=== PATIENT | male | born 1965 | race Caucasian/White ===

== ENCOUNTER → 2017-02-22 | Outpatient (CLI) | payer OTHER, MEDICARE ==
[~2017-02-22] MED LIST: ASPIRIN 32325 MG/TAB PO; CARAFATE 1GM1 G PO; CARAFATE S1 GM/10 ML PO; LEVOXYL0.075 MG PO; NORCO 325 MG-51 TAB PO; NORCO 325 MG-7.1 TAB PO; PREVACID 15MG15 M1 PO; PRINIVIL10 MG PO; UNABLE
== END ==
LOC: COL.LAB 07:58
DX: E03.9 Hypothyroidism, unspecified (principal)

== ENCOUNTER → 2017-04-05 | Outpatient (CLI) | payer OTHER, MEDICARE ==
[2017-04-05 10:43] LABS: BASO % 0.6 % (0.0-2.0); EOS # 0.1 (0.0-0.7); EOS % 1.8 % (0-4.0); GRAN # 4.3 (1.4-6.5); GRAN % 63.3 % (42.2-75.2); HEMATOCRIT 43.8 % (42.0-52.0); HEMOGLOBIN 15.2 g/dl (13.5-18.0); LYMPH # 1.7 (1.2-3.4); LYMPH % 24.7 % (20.0-51.0); MEAN CELL VOLUME 85 fl (80.0-100.0); MEAN CORPUSCULAR HEMOGLOBIN 30 pg (27.0-31.0); MEAN CORPUSCULAR HGB CONC 35 g/dl (33.0-37.0); MEAN PLATELET VOLUME 10.1 fl (7.4-10.4); MONO # 0.6 (0.1-0.6); MONO % 9.2 % (1.7-9.3); PLATELET COUNT 267 K/mm3 (130-400); RED BLOOD COUNT 5.14 M/mm3 (4.20-5.60); REDCELL DISTRIBUTION WIDTH-CV 12.4 % (11.5-14.5); WHITE BLOOD COUNT 6.7 K/mm3 (4.8-10.8)
[2017-04-05 10:56] LABS: ADJUSTED CALCIUM 9.1 mg/dL (8.4-10.2); ALBUMIN 4.2 gm/dL (3.5-5.0); BILIRUBIN,TOTAL 0.8 mg/dL (0.0-1.0); CALCIUM 9.3 mg/dL (8.4-10.2); CREATININE, serum 0.94 mg/dL (0.66-1.25); POTASSIUM 4.3 mmol/L (3.4-5.0)
[2017-04-05 11:26] LABS: PSA-TOTAL 0.64 ng/mL (0-4)
== END ==
LOC: COL.LAB 09:08
PROVIDERS: Internal Medicine
DX: Z00.00 Encounter for general adult medical examination without abnormal findings (principal); E03.4 Atrophy of thyroid (acquired); Z12.5 Encounter for screening for malignant neoplasm of prostate; Z11.59 Encounter for screening for other viral diseases
CPT/HCPCS: G0103

== ENCOUNTER → 2017-12-06 | Outpatient (CLI) | payer OTHER, MEDICARE ==
[2017-12-06 07:24] LABS: ALBUMIN 4.4 gm/dL (3.5-5.0); BILIRUBIN,TOTAL 0.7 mg/dL (0.0-1.0); CALCIUM 8.9 mg/dL (8.4-10.2); CREATININE, serum 0.87 mg/dL (0.66-1.25); POTASSIUM 4.3 mmol/L (3.4-5.0); TOTAL PROTEIN 7.2 gm/dL (6.4-8.2)
== END ==
LOC: COL.LAB 06:44
PROVIDERS: Psychiatry & Neurology Psychiatry
DX: F20.9 Schizophrenia, unspecified (principal); F31.2 Bipolar disorder, current episode manic severe with psychotic features; Z79.899 Other long term (current) drug therapy

== ENCOUNTER → 2018-04-11 | Outpatient (CLI) | payer OTHER, MEDICARE ==
[2018-04-11 08:01] LABS: HEMATOCRIT 42.6 % (42.0-52.0); HEMOGLOBIN 14.7 g/dl (13.5-18.0); MEAN CELL VOLUME 86 fl (80.0-100.0); MEAN CORPUSCULAR HEMOGLOBIN 30 pg (27.0-31.0); MEAN CORPUSCULAR HGB CONC 35 g/dl (33.0-37.0); PLATELET COUNT 267 K/mm3 (130-400); RED BLOOD COUNT 4.94 M/mm3 (4.20-5.60); REDCELL DISTRIBUTION WIDTH-CV 12.4 % (11.5-14.5)
[2018-04-11 08:10] LABS: ALBUMIN 4.3 gm/dL (3.5-5.0); BILIRUBIN,TOTAL 0.9 mg/dL (0.0-1.0); CALCIUM 9.2 mg/dL (8.4-10.2); CHOLESTEROL RISK RATIO 3.3; CREATININE, serum 0.92 mg/dL (0.66-1.25); POTASSIUM 4.2 mmol/L (3.4-5.0); TOTAL PROTEIN 7.2 gm/dL (6.4-8.2)
[2018-04-11 08:39] LABS: THYROID STIMULATING HORMONE 2.86 uIU/mL (0.465-4.680)
[2018-04-11 09:26] LABS: PSA-TOTAL 0.63 ng/mL (0-4)
== END ==
LOC: COL.LAB 07:33
PROVIDERS: Internal Medicine
DX: Z00.00 Encounter for general adult medical examination without abnormal findings (principal); E03.9 Hypothyroidism, unspecified
CPT/HCPCS: G0103

== ENCOUNTER 2018-04-26 12:09 | Day surgery (SDC) | payer OTHER, MEDICARE ==
[2006-05-22 23:03] VITALS: BP 113/76
[~2018-04-26] VITALS: Ht 177.8 cm; Wt 78.7 kg
[2018-04-26 12:41] VITALS: BP 129/95; PULSE 84; TEMP 98.1
[2018-04-26] MEDS ORDERED: SYNTHROID0.088 MG/T PO (12:54)
[2018-04-26] MEDS ORDERED: CELEXA 20MG20 MG/TAB PO (12:58)
[2018-04-26] MEDS ORDERED: PREVACID24HROTC PO (12:59)
[2018-04-26] MEDS ORDERED: LIPITOR 10MG10 MG PO (13:00)
[2018-04-26] MEDS ORDERED: KLONOPIN 1MG1 MG PO (13:01)
[2018-04-26] MEDS ORDERED: COGENTIN .0.5 MG/TAB PO (13:01)
[2018-04-26] MEDS ORDERED: RISPERDALC37.5 MG/2 IJ (13:03)
[2018-04-26 13:55] VITALS: BP 132/96; PULSE 73; TEMP 98.7
[2018-04-26 14:00] VITALS: BP 133/97; PULSE 73
[2018-04-26 14:15] VITALS: BP 128/101; PULSE 73
[2018-04-26 14:30] VITALS: BP 119/85; PULSE 73
== END 2018-04-26 14:52 | disposition home or self-care (01) ==
LOC: SDCO 12:09
DX: Z12.11 Encounter for screening for malignant neoplasm of colon (principal); D12.5 Benign neoplasm of sigmoid colon; K64.0 First degree hemorrhoids; K21.9 Gastro-esophageal reflux disease without esophagitis; I10 Essential (primary) hypertension; E78.00 Pure hypercholesterolemia, unspecified; Z88.0 Allergy status to penicillin; Z88.2 Allergy status to sulfonamides
CPT/HCPCS: J2250; J3010; J7030

== ENCOUNTER → 2018-12-08 | Outpatient (CLI) | payer OTHER, MEDICARE ==
[~2018-12-08] MED LIST changes: +CELEXA 20MG20 MG/TAB PO; +COGENTIN .0.5 MG/TAB PO; +KLONOPIN 1MG1 MG PO; +LIPITOR 10MG10 MG PO; +PREVACID24HROTC PO; +RISPERDALC37.5 MG/2 IJ; +SYNTHROID0.088 MG/T PO
[2018-12-08 11:14] LABS: ALBUMIN 4.4 gm/dL (3.5-5.0); BILIRUBIN,TOTAL 0.9 mg/dL (0.0-1.0); CALCIUM 9.4 mg/dL (8.4-10.2); CREATININE, serum 0.86 mg/dL (0.66-1.25); TOTAL PROTEIN 7.5 gm/dL (6.4-8.2)
== END ==
LOC: COL.LAB 09:52
PROVIDERS: Psychiatry & Neurology Psychiatry
DX: F31.2 Bipolar disorder, current episode manic severe with psychotic features (principal); Z79.899 Other long term (current) drug therapy

== ENCOUNTER → 2019-01-13 | Outpatient (CLI) | payer OTHER, MEDICARE ==
[~2019-01-13] MED LIST changes: +BENADRYL25 M2 PO
[2019-01-13 10:35] LABS: BASO % 0.5 % (0.0-2.0); EOS # 0.1 (0.0-0.7); EOS % 0.9 % (0-4.0); GRAN % 68.4 % (42.2-75.2); HEMATOCRIT 41.8 % (42.0-52.0); LYMPH # 1.3 (1.2-3.4); LYMPH % 15.2 % (20.0-51.0); MEAN CELL VOLUME 89 fl (80.0-100.0); MEAN CORPUSCULAR HEMOGLOBIN 30 pg (27.0-31.0); MEAN CORPUSCULAR HGB CONC 34 g/dl (33.0-37.0); MEAN PLATELET VOLUME 9.8 fl (7.4-10.4); MONO # 1.3 (0.1-0.6); MONO % 14.9 % (1.7-9.3); PLATELET COUNT 282 K/mm3 (130-400); RED BLOOD COUNT 4.68 M/mm3 (4.20-5.60); REDCELL DISTRIBUTION WIDTH-CV 12.9 % (11.5-14.5)
[2019-01-13 10:45] LABS: ALBUMIN 4.1 gm/dL (3.5-5.0); BILIRUBIN,TOTAL 0.8 mg/dL (0.0-1.0); CALCIUM 9.4 mg/dL (8.4-10.2); CREATININE, serum 0.85 (0.66-1.25); POTASSIUM 4.3 mmol/L (3.4-5.0); TOTAL PROTEIN 7.3 gm/dL (6.4-8.2)
== END ==
LOC: COL.LAB 10:06
PROVIDERS: Internal Medicine
DX: K11.7 Disturbances of salivary secretion (principal); M79.641 Pain in right hand; M79.642 Pain in left hand; R26.81 Unsteadiness on feet; R13.12 Dysphagia, oropharyngeal phase; R29.898 Other symptoms and signs involving the musculoskeletal system; R25.1 Tremor, unspecified; R45.89 Other symptoms and signs involving emotional state

== ENCOUNTER 2019-01-16 15:09 | Inpatient (IN) | payer OTHER, MEDICARE ==
[~2019-01-16] VITALS: Ht 172.7 cm; Wt 76.8 kg
[~2019-01-16 15:09] MED LIST changes: -BENADRYL25 M2 PO
[2019-01-16 15:42] LABS: BASO % 0.4 % (0.0-2.0); EOS # 0.1 (0.0-0.7); EOS % 0.8 % (0-4.0); GRAN # 6.7 (1.4-6.5); GRAN % 79.3 % (42.2-75.2); HEMATOCRIT 44.3 % (42.0-52.0); HEMOGLOBIN 14.9 g/dl (13.5-18.0); LYMPH % 11.9 % (20.0-51.0); MEAN CELL VOLUME 88 fl (80.0-100.0); MEAN CORPUSCULAR HEMOGLOBIN 30 pg (27.0-31.0); MEAN CORPUSCULAR HGB CONC 34 g/dl (33.0-37.0); MONO # 0.6 (0.1-0.6); MONO % 7.2 % (1.7-9.3); PLATELET COUNT 336 K/mm3 (130-400); RED BLOOD COUNT 5.03 M/mm3 (4.20-5.60); REDCELL DISTRIBUTION WIDTH-CV 12.5 % (11.5-14.5)
[2019-01-16 16:13] LABS: COLLECTION METHOD CLEAN CATCH
[2019-01-16 16:20] LABS: PH 8 (5-8); SQUAMOUS EPITHELIAL None Seen /hpf; URINE APPEARANCE Clear; URINE BACTERIA None Seen /hpf; URINE BILIRUBIN Negative (NEGATIVE); URINE BLOOD 3+ (NEGATIVE); URINE COLOR Yellow; URINE GLUCOSE Negative (NEGATIVE); URINE KETONE Trace (NEGATIVE); URINE LEUKOCYTE ESTERASE Negative (NEGATIVE); URINE NITRATE Negative (NEGATIVE); URINE PROTEIN(semi-quant) Negative (NEGATIVE); URINE RBC >50 /hpf
[2019-01-16 16:21] LABS: PROTHROMBIN TIME 11.9 SECONDS (9.7-12.8)
[2019-01-16 16:35] LABS: ALANINE AMINOTRANSFERASE 83 U/L (21-72); ALBUMIN 4.2 gm/dL (3.5-5.0); ALKALINE PHOSPHATASE 76 U/L (50-136); ANION GAP 11 mmol/L (7-16); AST,SGOT 138 U/L (15-37); BILIRUBIN,TOTAL 0.5 mg/dL (0.0-1.0); BLOOD UREA NITROGEN 10 mg/dL (9-20); CALCIUM 9.6 mg/dL (8.4-10.2); CARBON DIOXIDE 28 mmol/L (22-30); CHLORIDE 100 mmol/L (98-107); CREATININE, serum 0.86 (0.66-1.25); GLUCOSE 117 mg/dL (74-106); LIPASE 55 U/L (23-300); POTASSIUM 4.3 mmol/L (3.4-5.0); SODIUM 139 mmol/L (137-145); TOTAL PROTEIN 7.5 gm/dL (6.4-8.2)
[2019-01-16 16:46] LABS: TROPONIN-I < 0.012 ng/mL (0.000-0.035)
[2019-01-16] MEDS ORDERED: BENADRYL25 M2 PO (21:42)
--- NOTE | 2019-01-16 23:33 | NUR ---
Report receive from JOSE Jaimes
[2019-01-17] VITALS (8 sets, daily range): BP systolic 130–156; BP diastolic 82–98; PULSE 73–95; TEMP 97.5–99
--- NOTE | 2019-01-17 00:15 | NUR ---
Patient arrived to medical floor with . Assessment complete. Lungs clear. Heart sounds normal. Bowels active x4. Pulses strong throughout. No edema noted. Coccyx area red/blanchable. Patient able to answer simple questions, difficult to understand speech. Orientated patient and to medical floor and room. Denies needs at this time. Call light in reach. Bed alarm in place.
--- NOTE | 2019-01-17 01:21 | NUR ---
Patient up to bedside commode x2 assist. Transferred well, able to move to side of bed with minimal assistance. Shuffing gait, with more difficulty with right foot.
--- NOTE | 2019-01-17 04:22 | NUR ---
Resting in bed with at bedside.
--- NOTE | 2019-01-17 05:29 | NUR ---
Bladder scanned patient. 505ml present. Per SABRINA Lujan start perez. Inserted perez. 400 ml of clear yellow urine out. Patient tolerated well.
--- NOTE | 2019-01-17 06:23 | NUR ---
Patient resting in bed with at bedside. Milton done. Seizure pads in place. IV fluids increased to 200 ml/hr as ordered. denies needs at this time. Call light in reach.
--- NOTE | 2019-01-17 07:00 | NUR ---
Report given to JOSE Vincent.
[2019-01-17 07:24] LABS: BASO % 0.3 % (0.0-2.0); EOS # 0.1 (0.0-0.7); EOS % 2.3 % (0-4.0); GRAN # 4.3 (1.4-6.5); HEMATOCRIT 37.8 % (42.0-52.0); LYMPH # 1.2 (1.2-3.4); LYMPH % 19.2 % (20.0-51.0); MEAN CELL VOLUME 89 fl (80.0-100.0); MEAN CORPUSCULAR HEMOGLOBIN 29 pg (27.0-31.0); MEAN CORPUSCULAR HGB CONC 33 g/dl (33.0-37.0); MEAN PLATELET VOLUME 10.1 fl (7.4-10.4); MONO # 0.6 (0.1-0.6); MONO % 8.9 % (1.7-9.3); PLATELET COUNT 286 K/mm3 (130-400); RED BLOOD COUNT 4.26 M/mm3 (4.20-5.60); REDCELL DISTRIBUTION WIDTH-CV 12.5 % (11.5-14.5)
[2019-01-17 07:26] LABS: HEMOGLOBIN 12.5 g/dl (13.5-18.0)
[2019-01-17 07:44] LABS: ALBUMIN 3.2 gm/dL (3.5-5.0); BILIRUBIN,TOTAL 0.4 mg/dL (0.0-1.0); CALCIUM 8.7 mg/dL (8.4-10.2); CREATININE, serum 0.75 (0.66-1.25); POTASSIUM 4.1 mmol/L (3.4-5.0); TOTAL PROTEIN 5.8 gm/dL (6.4-8.2)
[2019-01-17 07:45] LABS: MAGNESIUM 1.9 mg/dL (1.6-2.3)
--- NOTE | 2019-01-17 09:19 | NUR ---
Pt alert and oriented. Pt has spouse at bedside. Pt able to answer short questions. Pt able to smile and react appropriately to conversation this am. Pt seen by speech therapy this am. Pt able to take meds with applesauce slowly. Pt assisted x2 up to bed side commode. Pt provided cares and assessment completed. Pt denies pain or SOB. Pt has aide at side until done on commode for fall precautions in place. Seizure precautions remain as well.
--- NOTE | 2019-01-17 10:27 | NUR ---
BERNARDA and BERNARDA student attended clinical rounds. PT/OT/ST and an IPR consult has been ordered. The patient lives in [place] with his , Fely. Fely reports that the patient had been independent with ADLs until last Wednesday, 01/10, and then started declining. She states that he does not have any DME, just a gait belt. She states that the patient's PCP recommended a walker with a seat for him. The patient's PCP is Dr. Mira Ramey and he receives his medications from [facility] in [place] or the [facility]. He also follows up at [facility]. He does not have advanced directives, but he was interested in obtaining a form for DPOA-HC. BERNARDA provided. SW to continue to follow to ensure a safe discharge.
--- NOTE | 2019-01-17 10:46 | NUR ---
Initial visit; Patient resting, Bar Host/Hostess spent time listening and offering empathy to spouse.
--- NOTE | 2019-01-17 12:05 | NUR ---
Pt alert and oriented to person, place, time. Pt denies pain at this time and SOB. Pt going downstairs via wheelchair for MRI and then swallow study. Pt aware and spouse at bedside. EEG planned for around 1400 today. Pt denies needs at this time.
--- NOTE | 2019-01-17 14:04 | NUR ---
Pt returned from MRI and barrium swallow and telemetry put back on pt. Pt IV fluids restarted per orders. Pt states that he is hungry. Pt advised will have to speak with ST and MD regarding diet order. Pt and spouse verbalize understanding. Pt has call light in reach and EEG scheduled for 1400.
--- NOTE | 2019-01-17 16:55 | NUR ---
Pt alert and oriented but continues to mumble words to communicate. Pt spouse at bedside. Pt reports some tingling pain in his feet and asked for sheet to be taken off his feet. Pt has tremors noted in bilateral hands and arms. Dr. Black updated and no new orders continue to monitor. Pt has call light in reach and education given on diet and swallowing. Pt denies needs at this time.
--- NOTE | 2019-01-17 18:57 | NUR ---
Pt report given to Shelley Sherman. Pt resting in bed with spouse feeding him little bites of pureed food. Spouse edu to let nurse know when eating and to take it very slow to prevent any chance of aspiration. Spouse verbalizes understanding. Pt has call light in reach.
--- NOTE | 2019-01-17 19:02 | NUR ---
Report received from JOSE Vincent
--- NOTE | 2019-01-17 21:00 | NUR ---
Resting in bed with at bedside. Assessment complete. Lungs clear. Heart sounds normal. Bowels active x4. Pulses strong throughout. Erythema to buttocks, blanchable. Repositioning Q2H. Right AC IV infusing at 150ml/hr without complications. Denies any pain. Milton draining without complications. Denies needs at this time. Call light in reach.
[2019-01-18] VITALS (7 sets, daily range): BP systolic 111–147; BP diastolic 48–95; PULSE 72–92; TEMP 97.2–99.2
--- NOTE | 2019-01-18 00:18 | NUR ---
Patient repositioned. denies needs at this time. Call light in reach.
--- NOTE | 2019-01-18 01:30 | NUR ---
report recieved from JOSE Rosa. pt sleeping in bed with at bedside. no needs at this time. call light in reach.
--- NOTE | 2019-01-18 01:44 | NUR ---
Report given to Whit Montenegro
--- NOTE | 2019-01-18 04:14 | NUR ---
pt resting in bed with at bedside. when asking about pain pt said "no". moistened lips. VSS. IV fluids running via R AC- no redness no swelling. turning Q2. call light in reach. bed alarm on
--- NOTE | 2019-01-18 04:18 | NUR ---
pt perez draining independently, no kinks. secured to leg. pt sleeping. bed alarm on.
[2019-01-18 06:43] LABS: CREATININE, serum 0.66 (0.66-1.25); POTASSIUM 4.1 mmol/L (3.4-5.0)
--- NOTE | 2019-01-18 06:45 | NUR ---
report given to JOSE Carrera. pt resting in bed. had an uneventful night. no pain. no needs at this time
[2019-01-18 06:50] LABS: BASO % 0.2 % (0.0-2.0); EOS # 0.1 (0.0-0.7); EOS % 1.7 % (0-4.0); GRAN # 4.3 (1.4-6.5); GRAN % 70.5 % (42.2-75.2); HEMATOCRIT 38.5 % (42.0-52.0); HEMOGLOBIN 12.9 g/dl (13.5-18.0); LYMPH # 1.1 (1.2-3.4); LYMPH % 18.2 % (20.0-51.0); MEAN CELL VOLUME 89 fl (80.0-100.0); MEAN CORPUSCULAR HEMOGLOBIN 30 pg (27.0-31.0); MEAN CORPUSCULAR HGB CONC 34 g/dl (33.0-37.0); MONO # 0.6 (0.1-0.6); MONO % 9.1 % (1.7-9.3); PLATELET COUNT 295 K/mm3 (130-400); RED BLOOD COUNT 4.31 M/mm3 (4.20-5.60); REDCELL DISTRIBUTION WIDTH-CV 12.4 % (11.5-14.5)
--- NOTE | 2019-01-18 06:50 | NUR ---
Recieved report from, Amaya GARCIA. Patient was laying in bed. is in the room. The patient and denies any needs at this time. Will continue to monitor.
--- NOTE | 2019-01-18 11:28 | NUR ---
Follow-up visit; Patient and thanked Marble Worker for looking in on him and offering comfort and prayer. Marble Worker wished him well.
--- NOTE | 2019-01-18 12:44 | NUR ---
Pt was assissted to the shower. assissted the patient while in the shower. Pts reported that the patient tolerated the shower well. Pt was assissted back to bed and is resting. Call light in reach. Will continue to monitor.
--- NOTE | 2019-01-18 14:30 | NUR ---
NG placed per student RNMirella and this nurse. 16F to the right nare in place and xray taken to confirm placement. The patient tolerated the procedure well. Will start Jevity 1.5 at 30ml/hr when xray confirmed.
--- NOTE | 2019-01-18 15:00 | NUR ---
Radiology called to confirm NG placement. NG confirmed in place per radiologist. Feeding initiated at 30ml/hr with bolus water at 30ml. [id number]. Plan to increase rate to 50ml/hr if tolerated.
--- NOTE | 2019-01-18 21:15 | NUR ---
pt resting in bed relaxed with at bedside. pt reports no pain, just stiffness. turned pt at this time. turning 2Q. pt alert and oriented x4. NG tube secured to nose with Jevity running at 30ml/hr. perez is draining freely, no kinks, secured to leg. elevated heels at this time. pt recieved medication crushed in applesauce, swallowed well when pressing gently on lips with rag. pt and report no needs at this time. call light inreach
--- NOTE | 2019-01-18 21:32 | NUR ---
NG TUBE SECURED TO NOSE RATE 30 ML/HR.
--- NOTE | 2019-01-18 23:30 | NUR ---
NG is secured to nose. increased feeding rate to 50ML/HR for 7 hours. no needs at this time. calll light in reach.
[2019-01-19] VITALS (7 sets, daily range): BP systolic 122–139; BP diastolic 80–87; PULSE 77–81; TEMP 97.7–98.8
--- NOTE | 2019-01-19 00:43 | NUR ---
london Q2. pt reports no pain. asleep at ths time with at bed side. call light in reach
--- NOTE | 2019-01-19 05:51 | NUR ---
pt had an uneventful night. no pain reported. pt remained at 45 degrees throughout night. NG tube secured to nose with Jevity running at 50 ml/hr. perez draining freely, no kinks, secured to leg. VSS. turning Q2. heels floated. no needs at this time call light in reach.
--- NOTE | 2019-01-19 06:24 | NUR ---
pt NG tube is clamped at 57cm. residual <65cc throughout night. pt swalling improved throughout night. no pain, no needs a this time.
[2019-01-19 06:51] LABS: BASO % 0.4 % (0.0-2.0); EOS # 0.2 (0.0-0.7); GRAN # 5.3 (1.4-6.5); GRAN % 70.7 % (42.2-75.2); HEMATOCRIT 39.9 % (42.0-52.0); HEMOGLOBIN 13.7 g/dl (13.5-18.0); LYMPH # 1.2 (1.2-3.4); LYMPH % 15.5 % (20.0-51.0); MEAN CELL VOLUME 88 fl (80.0-100.0); MEAN CORPUSCULAR HEMOGLOBIN 30 pg (27.0-31.0); MEAN CORPUSCULAR HGB CONC 34 g/dl (33.0-37.0); MEAN PLATELET VOLUME 9.9 fl (7.4-10.4); MONO # 0.8 (0.1-0.6); MONO % 11.1 % (1.7-9.3); PLATELET COUNT 327 K/mm3 (130-400); RED BLOOD COUNT 4.53 M/mm3 (4.20-5.60); REDCELL DISTRIBUTION WIDTH-CV 12.7 % (11.5-14.5)
--- NOTE | 2019-01-19 07:09 | NUR ---
report given to JOSE Carrera. pt has no needs at this time
--- NOTE | 2019-01-19 08:30 | NUR ---
Initial assessment completed per Elgin, student RN. This nurse reviewed her assessment and agree with the findings. No pain. The patient was observed eating and has improved swallowing ability since yesterday. Plan to continue feeding tube and reassess amount patient is able to in on hiw own PO.
--- NOTE | 2019-01-19 08:45 | NUR ---
Reported on to Debi GARCIA. Patient A&O x3. Sitting up in bed due to NG tube feeding. 16F NG tube running at 50ml/hr, 10ml residual, 53 cm from nose to tip, and flushed with 30ml water. Rated changed to goal of 65ml/hr. Hand solutions operator weak but equal. Milton catheter in place. Patient states no pain at this time, no nausea, and passing flatus. HOB kept at 45 degrees. at bedside. Call light in reach, bed in lowest position, bed alarm on. Patient stated no other needs.
--- NOTE | 2019-01-19 12:17 | NUR ---
First visit from the etiquette teacher. prayed with patient. No other needs right now.
--- NOTE | 2019-01-19 13:20 | NUR ---
Milton catheter removed. 9ml of water removed from balloon with balloon intact. 700ml of urine flushed. Pericare provided after removal. Patient tolerated well.
--- NOTE | 2019-01-19 13:45 | NUR ---
Primary nurse was assisted with [phone] patient care by [employer] student Elgin Orozco and [employer] instructor Isabel Villeda RN-.
--- NOTE | 2019-01-19 18:09 | NUR ---
Patient sitting up in bed, HOB greater than 35 degrees. Alert and slowly responds to verbal command. VS stable. IV CDI. Tube feed to NG tube, rate decreased to 30ml/hr. Patient complaints of feeling full, doctor aware and rate decreased. Patient had complaints of hard stools, doctor aware and miralax ordered. at the bedside to help with cares. No further needs expressed from patient. Call light within reach
--- NOTE | 2019-01-20 04:13 | NUR ---
PT HAD UNEVENTFUL NOC. NG TUBE FEEDING GOING WITHOUT ISSUES, RUNNING AT 30CC, PT TOLLERATING WELL, ONLY 10CC RESIDUAL NOTED AND FREE WATER FLUSED WITHOUT ISSUE. TOLERATED PUREE DIET WELL. NS INFUSING WITHOUT ISSUE TKO. PT A&O X4, ABLE TO MAKE NEEDS KNOWN, SOFT SPOKEN. AT BEDSIDE AND HELPS WITH PT CARES.
[2019-01-20 04:23] VITALS: BP 119/85; PULSE 85; TEMP 98.2
[2019-01-20 06:59] LABS: BASO # 0.1 (0.0-0.2); BASO % 0.6 % (0.0-2.0); EOS # 0.2 (0.0-0.7); EOS % 2.2 % (0-4.0); GRAN # 5.6 (1.4-6.5); GRAN % 68.9 % (42.2-75.2); HEMATOCRIT 40.9 % (42.0-52.0); HEMOGLOBIN 13.4 g/dl (13.5-18.0); LYMPH # 1.3 (1.2-3.4); LYMPH % 15.6 % (20.0-51.0); MEAN CELL VOLUME 90 fl (80.0-100.0); MEAN CORPUSCULAR HEMOGLOBIN 30 pg (27.0-31.0); MEAN CORPUSCULAR HGB CONC 33 g/dl (33.0-37.0); MONO % 12.3 % (1.7-9.3); PLATELET COUNT 337 K/mm3 (130-400); RED BLOOD COUNT 4.54 M/mm3 (4.20-5.60); REDCELL DISTRIBUTION WIDTH-CV 12.8 % (11.5-14.5)
[2019-01-20 07:11] LABS: ALBUMIN 3.7 gm/dL (3.5-5.0); BILIRUBIN,TOTAL 0.3 mg/dL (0.0-1.0); CALCIUM 9.7 mg/dL (8.4-10.2); CREATININE, serum 0.82 (0.66-1.25); POTASSIUM 4.4 mmol/L (3.4-5.0); TOTAL PROTEIN 6.5 gm/dL (6.4-8.2)
--- NOTE | 2019-01-20 07:40 | NUR ---
Received report from off going shift. Patient was in the restroom, is at bedside. giving report regarding patients night and suggestions regarding his care. He is not having any pain at this time. requesting foam mattress cover be applied to bed, this was completed with bed change. No other needs identified. Call light is within reach.
--- NOTE | 2019-01-20 08:34 | NUR ---
Patient is awake and alert in bed, voice is soft. NG tube is secured in place. Lungs sounds are clear. Heart rate is regular rate and rhythm. Abdomen is soft and nontender. Peripheral and radial pulses are readily palpable. Appetite is reported to be improving. stated overall she feels like things are on the up. She has been staying with him and feels comfortable enough to go to work today.
[2019-01-20 08:38] VITALS: BP 125/81; PULSE 90; TEMP 98.1
--- NOTE | 2019-01-20 09:15 | NUR ---
Reported on to Skyla GARCIA. Patient sitting in chair eating breakfast with assit from . A&O x3, but voice still very hoarse and low. NG residual 8ml and flushed with 20ml water. NG tube 53cm from nose to tip and rate of Jevity feeding 30ml/hr. Patient stated no pain or nausea and passing flatus. Medications crushed and placed in applesauce and patient tolerated well. Call light in reach and bed in lowest position.
--- NOTE | 2019-01-20 10:18 | NUR ---
BERNARDA and BERNARDA student met with the patient and his , Fely, to review discharge plan. The patient's reports that they would like to pursue with [facility] upon discharge. BERNARDA presented and explained the patient choice form to the patient and his . The patient's signed and she was provided a copy. Danika, IPR Director, reports that they would like to accept the patient, once he is medically stable and she has approval from his insurance. The patient also completed a DPOA-HC and he designated his , Fely. BERNARDA and BERNARDA student witnessed the patient sign. The patient was provided with the original and some copies. A copy was placed in the patient's chart.
--- NOTE | 2019-01-20 11:15 | NUR ---
Report received from JOSE Crum. Pt resting in bed after walking with PT. Will continue to monitor.
[2019-01-20 12:07] VITALS: BP 118/74; PULSE 80; TEMP 97.5
--- NOTE | 2019-01-20 13:18 | NUR ---
Report given to Whit Dang who will resume care.
--- NOTE | 2019-01-20 13:47 | NUR ---
Primary nurse was assisted with [phone] patient care by [employer] student Elgin Orozco and [employer] instructor Isabel Villeda RN-.
--- NOTE | 2019-01-20 15:37 | NUR ---
Patient is resting in bed. NS @60 ml/hr, RAC. IV site is CDI, no redness, drainage or edema. Continuous tube feeding at 30 ml/hr. Patient HOB at 40 degree. lung sounds are clear throughout out. heart sounds normal. Pulses strong bilaterally. 1+ edema BUE. No edema noted BLE. No other needs at this time.
[2019-01-20 16:04] VITALS: BP 121/75; PULSE 95; TEMP 97.8
[2019-01-20 20:56] VITALS: BP 128/85; PULSE 85; TEMP 97.6
--- NOTE | 2019-01-20 22:26 | NUR ---
Patient assessed around 2039. at bedside. Assisted with eatting pureed foods for supper. Patient was sitting up in recliner while eatting. NG tube remains in place, with feeding going at 30 ml/hr. Peripheral IV to right AC, NS running at 60 ml/hr. Hand steam pipe fitter weak, but equal. Patient very soft spoken, and hard to understand at times. remains at bedside. Voices no needs or concerns at this time. Resting in bed at this time. Call light is within reach.
[2019-01-21] VITALS (7 sets, daily range): BP systolic 112–136; BP diastolic 68–94; PULSE 59–99; TEMP 97.3–99.6
--- NOTE | 2019-01-21 02:42 | NUR ---
Patient respositioned every two hours in bed. Denies having pain and discomfort. NS continues at 60 ml/hr, and NG feeding continues at 30 ml/hr. Tolerating well. Resting in bed with eyes closed at this time. Call light is wihtin reach. at bedside.
[2019-01-21 06:46] LABS: BASO % 0.3 % (0.0-2.0); EOS # 0.3 (0.0-0.7); EOS % 2.8 % (0-4.0); GRAN # 6.5 (1.4-6.5); GRAN % 71.4 % (42.2-75.2); HEMOGLOBIN 13.2 g/dl (13.5-18.0); LYMPH # 1.2 (1.2-3.4); LYMPH % 13.6 % (20.0-51.0); MEAN CELL VOLUME 92 fl (80.0-100.0); MEAN CORPUSCULAR HEMOGLOBIN 30 pg (27.0-31.0); MEAN CORPUSCULAR HGB CONC 32 g/dl (33.0-37.0); MEAN PLATELET VOLUME 10.2 fl (7.4-10.4); MONO # 1.1 (0.1-0.6); MONO % 11.6 % (1.7-9.3); PLATELET COUNT 322 K/mm3 (130-400); RED BLOOD COUNT 4.47 M/mm3 (4.20-5.60); REDCELL DISTRIBUTION WIDTH-CV 12.9 % (11.5-14.5)
[2019-01-21 07:00] LABS: CALCIUM 9.4 mg/dL (8.4-10.2); CREATININE, serum 0.86 (0.66-1.25)
--- NOTE | 2019-01-21 07:08 | NUR ---
Patient got up to go to the bathroom around 0500. Patient made the comment that he felt like he could not urinate. After getting back into bed, used bladder scanner to check for residual. Most residual noted was 29 ml. No other complaints of pain or discomfort. Continues to be repositioned side to side about every 2 hours. Red area to bottom, blanchable at this time. Resting in bed with eyes closed at this time. Call light is within reach. Report given to daysmaft nurse.
--- NOTE | 2019-01-21 19:29 | NUR ---
Patient resting in bed with and son at bedside. tube feeding and NS running. Patient currently eating dinner, assisting. assists with suctioning PRN. Patient has had uneventful day. Sat in chair for most of morning and mid afternoon. Assisted by to bathroom. has been at bedside most of the day. Tube feeding residual checked, 10ml residual. Denies other needs at this time. Report given to JOSE Covarrubias.
--- NOTE | 2019-01-22 02:02 | NUR ---
PATIENT REFUASE NIGHT TREATMENT WOULD LIKE TO SLEEP
--- NOTE | 2019-01-22 03:46 | NUR ---
PT HAD UNEVENTFUL NOC. NO ISSUES OR CONSERNS VOICED. TOLLERATING PUREE DIET WELL. NO NOTED N/V. ABLE TO MAKE NEEDS KNOWN, SOFT SPOKEN. AT BEDSIDE.
[2019-01-22 04:46] VITALS: BP 138/92; PULSE 87
--- NOTE | 2019-01-22 05:44 | NUR ---
PT HAD UNEVENTFUL NOC. APPEARED TO HAVE SLEPT WELL. RESIDULES CHECKED AND NG TUBE FLUSHED. PT WAS TURNED IN BED OVERNIGHT. NO ISSUES OR CONSERNS VOICED. REMAINED AT BEDSIDE.
[2019-01-22 07:14] VITALS: BP 132/90; PULSE 94; TEMP 98
--- NOTE | 2019-01-22 08:00 | NUR ---
Pt out of bed to chair eating breakfast with assistance of aide and spouse Fely. Pt following commands and resonds appropriately to questions and responds with laughter appropriately as well. Turn q1 while in chair and turn q2 in bed discussed with pt/spouse/aide. Specialized pressure/squeeze call light within reach.
[2019-01-22 12:05] VITALS: BP 133/80; PULSE 92; TEMP 97.5
[2019-01-22 15:25] VITALS: BP 124/72; PULSE 91; TEMP 99.2
--- NOTE | 2019-01-22 18:15 | NUR ---
Since taking over cares the pt has been resting quietly. He has remained free of pain. has remained at the bedside; all questions answered. Pt is sitting up in the bed resting quietly at this time and he denies further needs. Call light within reach, will continue to monitor.
--- NOTE | 2019-01-22 19:02 | NUR ---
Report given to JOSE Conde.
[2019-01-22 20:01] VITALS: BP 127/88; PULSE 103; TEMP 99.3
--- NOTE | 2019-01-22 20:04 | NUR ---
Patient assisted to restroom to go to the bathroom. Returned to bed. Assessment completed- lungs clear, abdominal sounds active, pulese +2 in lower extremities and +3 radial, cap refill <3 seconds, no reports of pain. NG tube residual checked and then flushed with 30 mls of water. Tube feeding running at a rate of 30 mls/hr. Took pills crushed with applesauce. No further needs at this time.
--- NOTE | 2019-01-22 21:42 | NUR ---
pt reports feeling "full", ng tube feeding decreased from 30 mls/hr to 15 mls/hr.
[2019-01-22 23:39] VITALS: BP 118/76; PULSE 80; TEMP 98.9
[2019-01-23 03:50] VITALS: BP 118/78; PULSE 88; TEMP 99.2
--- NOTE | 2019-01-23 04:30 | NUR ---
Tube feeding increased back up from 15 mls/hr to 30 mlls/hr.
--- NOTE | 2019-01-23 05:53 | NUR ---
Pt slept for most of the night, up a few times to use the restroom. Able to ambulate with 1 assist, wearing gaitbelt. NG tube in place, feeding at 30 mls/hr, residual checks q4h. No reports of pain, VSS. at bedside.
[2019-01-23 06:36] LABS: ALBUMIN 3.6 gm/dL (3.5-5.0); BILIRUBIN,TOTAL 0.6 mg/dL (0.0-1.0); CALCIUM 9.1 mg/dL (8.4-10.2); CREATININE, serum 0.81 (0.66-1.25); MAGNESIUM 2.1 mg/dL (1.6-2.3); PHOSPHOROUS 4.6 mg/dL (2.5-4.5); POTASSIUM 4.2 mmol/L (3.4-5.0); TOTAL PROTEIN 6.6 gm/dL (6.4-8.2)
[2019-01-23 06:43] LABS: PRE ALBUMIN 16.9 mg/dL (17.6-36.0)
--- NOTE | 2019-01-23 07:08 | NUR ---
report given to terra juarez. patient sitting up in bed, helped to bathroom.
--- NOTE | 2019-01-23 07:13 | NUR ---
Report received fron JOSE Conde. Patient assisted to the bathroom. is currently washing his hair. Will continue to monitor.
--- NOTE | 2019-01-23 07:30 | NUR ---
One assist up to the bathroom. The assisted with washing his hair and provided some hygiene. No pain reported at this time. Assisted then back to the chair for breakfast. Tube feeding and IV fluids are completed. IVF, medications and new tube feeding supplies gathered at the bedside. Mirella Monson, Student RN assisting with cares and medications this morning. No pain or needs reported. The did mention the patient was having difficulty feeding himself-raising the utensils to his mouth. Mirella assisted with breakfast this morning.
[2019-01-23 08:10] VITALS: BP 126/79; PULSE 101; TEMP 98.9
--- NOTE | 2019-01-23 08:45 | NUR ---
Assisted pt with breakfast. Pt had one bowl of oatmeal, 1 waffle, 2 ounces of apple sauce, eight ounces of apple juice, and two ounces of coffee. Pt tolerated food and liquids well. Pt is currently sitting in his chair with is call light in reach. Will continue to monitor.
--- NOTE | 2019-01-23 09:13 | NUR ---
SW attended clinical rounds. ST is to reevaluate the patient today. IPR Director, Danika, reports that she is waiting to here back from the patient's insurance. SW to continue to follow.
[2019-01-23] MEDS ORDERED: TOPAMAX 25MG25 M1 PO (11:35)
[2019-01-23] MEDS ORDERED: SINEMET 25/101 UDTAB PO (11:35)
[2019-01-23] MEDS ORDERED: ATIVAN 0.50.5 MG/TAB PO (11:35)
[2019-01-23] MEDS ORDERED: MIRALAX510G PO (11:36)
[2019-01-23] MEDS ORDERED: IPRATROPIUM BROM3 M1 IH (11:36)
[2019-01-23] MEDS ORDERED: COLACE 100100 MG/CAP PO (11:36)
[2019-01-23 12:11] VITALS: BP 134/90; PULSE 94; TEMP 99
--- NOTE | 2019-01-23 13:21 | NUR ---
IPR Director, Danika, received approval from the patient's insurance. The patient is to discharge today, 01/23, to [facility]. No additional needs at this time.
--- NOTE | 2019-01-23 13:45 | NUR ---
NG removed per this nurse and student RN, Mirella Monson. Plan to leave out at this time. Transferrend to [facility] with IV in place per family request in case the patient needs more IV fluids following speech assessment this afternoon. The patient walked all the way to [facility] with one assist. , Mercedes notified of tranfer and will be here to assist.
--- NOTE | 2019-01-23 14:56 | NUR ---
Tube feedings discontinued. 16 Nigerien NG tube removed per this nurse and JOSE Carrera. Patient tolerated removal well. Tip intact. Patient transffered to [facility].
== END 2019-01-23 14:55 | DRG 57 ==
LOC: COL.ER 15:09 → MEDICAL 19:39
PROVIDERS: Emergency Medicine; Nurse Practitioner Family; Physician Assistant; ADMIT Internal Medicine
PROC: 0DH67UZ Insertion of Feeding Device into Stomach, Via Natural or Artificial Opening (ICD-10-PCS; principal; 2019-01-18)
DX: G21.11 Neuroleptic induced parkinsonism (principal); M62.82 Rhabdomyolysis; J98.11 Atelectasis; E44.0 Moderate protein-calorie malnutrition; G24.01 Drug induced subacute dyskinesia; I10 Essential (primary) hypertension; E78.5 Hyperlipidemia, unspecified; E03.9 Hypothyroidism, unspecified; F25.0 Schizoaffective disorder, bipolar type; R33.9 Retention of urine, unspecified; K21.9 Gastro-esophageal reflux disease without esophagitis; Z91.14 Patient's other noncompliance with medication regimen; Z68.26 Body mass index [BMI] 26.0-26.9, adult; R13.11 Dysphagia, oral phase
CPT/HCPCS: 99223-AI; 99232-AI; 99233-AI; 99239; A4216; A9585; G0463; J0456; J0696; J1650; J7030; J7050

== ENCOUNTER 2019-01-23 11:03 | Inpatient (IN) | payer OTHER, MEDICARE ==
[~2019-01-23] VITALS: Ht 180.3 cm; Wt 76.0 kg
[~2019-01-23 11:03] MED LIST changes: +BENADRYL25 M2 PO
[2019-01-23] MEDS ORDERED: TOPAMAX 25MG25 M1 PO (11:35)
[2019-01-23] MEDS ORDERED: ATIVAN 0.50.5 MG/TAB PO (11:35)
[2019-01-23] MEDS ORDERED: SINEMET 25/101 UDTAB PO (11:35)
[2019-01-23] MEDS ORDERED: IPRATROPIUM BROM3 M1 IH (11:36)
[2019-01-23] MEDS ORDERED: COLACE 100100 MG/CAP PO (11:36)
[2019-01-23] MEDS ORDERED: MIRALAX510G PO (11:36)
--- NOTE | 2019-01-23 13:45 | NUR ---
Patient arrived to [facility] and started therapies right away. Received report from Laura & nursing educator. See census sheet. Patient came over with IV to Rt AC will have Dr. Black clarify tomorrow if he wants to continue to keep that IV in. Communicated this to the night nurse. Denies pain at this time. Will continue to monitor.
[2019-01-23 17:42] VITALS: BP 127/90; PULSE 93; TEMP 98.8
[2019-01-24 05:06] VITALS: BP 112/79; PULSE 86; TEMP 98.9
--- NOTE | 2019-01-24 05:07 | NUR ---
PT HAD UNEVENTFUL NOC. THIS NURSE AND MANUAL LATHE OPERATOR HELPED REPOSISTION PT DURING NOC. PT APPEARED TO HAVE SLEPT WELL. HOB ELEVATED TO APPROX 35 DEGREES, PT STATED THAT HE WAS COMFORTABLE AND VOICED NO OTHER NEEDS. SWALLOWED CRUSHED MEDS IN APPLESAUSE WITHOUT ISSUE. REMAINED AT BEDSIDE. NO C/O PAIN OR NOTED N/V/D.
--- NOTE | 2019-01-24 08:32 | NUR ---
Report from JOSE Covarrubias. Pt to chair for breakfast. Taking puree diet with nectar thick liquids, meds crushed and given in applesauce. Pt very slow with any movement or verbal response. Denies pain. Given thick handled spoon to try.
--- NOTE | 2019-01-24 13:56 | NUR ---
BERNARDA student met with patient to complete intake and discuss discharge plan. Patient lives in [place] with his (Fely). Patient's PCP is Dr. Mira Ramey and receives his medications from [facility]. Patient does not use any DME and reports indpendence with ADLs with the occasional assitance from his . Patient's DPOA-HC is in EMR and it designates his . Patient plans to return home with his upon discharge. BERNARDA pineda informed patient of the weekly team conferences on Wednesdays and the notes that follow. No identified needs at this time. SW to continue to follow.
[2019-01-24 15:09] VITALS: BP 118/80; PULSE 88; TEMP 98.1
--- NOTE | 2019-01-24 17:54 | NUR ---
Pt to chair for supper, alarm on, call in reach, [facility] soft diet and thin liquids per ST. Shoes in place. Pt slow with eating.
--- NOTE | 2019-01-24 19:45 | NUR ---
Shift assessment complete. Patient a/o x3, sitting in chair. Denies pain. at bedside.
[2019-01-25 05:41] VITALS: BP 122/79; PULSE 82; TEMP 97.4
--- NOTE | 2019-01-25 15:14 | NUR ---
Patient resting in recliner at this time, call light in reach and alarm is on. Patient was given a soft call light paddle since he has a difficult time pushing on his call light remote. Patient denied pain at this time. He is eating on his own, but does take a lot of time to eat and then requires staff to assist him with finishing eating. He has been in a pleasent mood today and has attended all therapies.
--- NOTE | 2019-01-25 15:40 | NUR ---
SW student met with patient to present IPR Team Conference Notes. SW student presented and explained the notes and scale used to assess tasks. SW to continue to follow.
[2019-01-25 18:20] VITALS: BP 127/87; PULSE 103; TEMP 98.4
--- NOTE | 2019-01-25 20:35 | NUR ---
Shift assessment complete. Pt resting in bedside recliner, awake, a&o cooperative c cares. Pt denies pain or any other c/o at this time. at bedside et assists c cares; getting in the shower now. Pt/wi deny needs. Call light in reach, will monitor.
--- NOTE | 2019-01-25 22:15 | NUR ---
Called to room to find pt had small amount emesis while in BR. reports that he "coughed a few times then got nauseated and threw up". also reports that this happened once earlier today while pt was trying to have a BM. Pt c/o some continued nausea. Discussed s/s c pt/, when asked about GERD they report that pt does in fact have reflux and normally takes Previcid at home but has not been getting anything here. Notified Le BENNETT on-call; orders recieved for Gricelda and Vineet et meds admin, see MAR.
--- NOTE | 2019-01-26 05:37 | NUR ---
Pt resting in bed, condition unchanged. Pt has rested well this shift c few needs. No N/V since Zofran admin last noc. remains at bedside. Pt/ deny needs. Call light in reach.
[2019-01-26 06:09] VITALS: BP 121/81; PULSE 88; TEMP 98.9
[2019-01-26 18:00] VITALS: BP 117/82; PULSE 94; TEMP 98.3
--- NOTE | 2019-01-26 18:39 | NUR ---
Pt's called as she could hear pt's stomach gurgling loudly. Abd is more firm on left side, and more active bowel sounds on left side than right. Pt denies pain or nausea. Will report.
--- NOTE | 2019-01-26 21:00 | NUR ---
PT UP TO BR X2 PER . HAD SMALL LOOSE BROWN STOOL AND XL LOOSE BROWN STOOL. MASKED FACE CONTINUES BUT LESS INTENSE. PT ABLE TO SMILE, LAUGH AND SPEAK CLEARLY. STILL AMB WITH SHUFFLED GAIT BUT HAS IMPROVED. VERY SUPPORTIVE AND STAYING WITH PATIENT TONIGHT. PT DENIES PAIN. VOIDING W/O DIFFICULTY. DENIES NEEDS AT THIS TIME.
--- NOTE | 2019-01-26 21:04 | NUR ---
Pt seemed in better spirits today, jacqueline mech soft diet with thin liquids. ST observed pt take sinemet pill with thin liquids, pt had some difficulty, ST asked nurse to try pills whole in applesauce one at a time. Report to JOSE Bennett. Pt's returned after shift change.
[2019-01-27 05:09] VITALS: BP 120/75; PULSE 77; TEMP 98.5
--- NOTE | 2019-01-27 11:50 | NUR ---
Patient resting in recliner at this time, call light in reach and alarm is on. Patient eating his lunch at this time. He attended morning therapies and denies pain at this time.
[2019-01-27 15:57] VITALS: BP 123/84; PULSE 83; TEMP 98
--- NOTE | 2019-01-27 19:42 | NUR ---
Pt up to chair. at bedside. No distress noted. Pt is pleasant. Pt is slow to respond, but is answering questions appropriately. A&O. Pt denies pain. No has some weakness, but practice consultant are equal. No needs noted at this time. Will continue to monitor.
--- NOTE | 2019-01-27 20:16 | NUR ---
Patient attended all therapies this afternoon. Tolerating his mechanical soft diet well, just taking a long time to eat. Denied pain this shift.
--- NOTE | 2019-01-27 21:00 | NUR ---
Pt took medication whole with applesauce. Well tolerated by patient. Pt up to bathroom with gait belt and stand by assist. Gait is steady, but slow. Pt helped to bed. No further needs noted.
--- NOTE | 2019-01-28 00:20 | NUR ---
Pt sleeping with HOB elevated. No distress noted. Resp even and unlabored. at bedside.
[2019-01-28 05:43] VITALS: BP 121/74; PULSE 84; TEMP 98.1
--- NOTE | 2019-01-28 06:31 | NUR ---
Pt sleeping this AM. Easily arousable. at bedside. Pt took AM meds with applesauce without difficulty. HOB elevated. No needs noted.
--- NOTE | 2019-01-28 10:42 | NUR ---
Patient up in chair this am. Did well eating independently a pancake. Minimal needs. At group therapy at this time. Kristopher pineda.
--- NOTE | 2019-01-28 11:13 | NUR ---
Patietn sitting up in chair. Up to the bathroom, minimal assist. His supportive at bedside.
--- NOTE | 2019-01-28 13:03 | NUR ---
Lunch finished. visiting with family. minimal needs
[2019-01-28 17:36] VITALS: BP 108/77; PULSE 69; TEMP 97.4
--- NOTE | 2019-01-28 19:00 | NUR ---
Pt up to chair. at bedside. No distress noted. Pt denies pain. Pt is good spirits. Answers questions appropriately but is slow to resond and slow with BLE ROM. Pt lungs clear. Resp even, unlabored. Pt does have nonproductive cough. Pt denies needs at this time. Will continue to monitor.
[2019-01-29 06:00] VITALS: BP 124/74; PULSE 80; TEMP 97.7
--- NOTE | 2019-01-29 06:19 | NUR ---
Pt resting this AM. HOB elevated to take Am medications whole with applesauce. No difficulty swallowing. Pt denies pain or needs.
--- NOTE | 2019-01-29 07:22 | NUR ---
Patient up to the bathroom. Report from Yahaira. Will monitor
--- NOTE | 2019-01-29 08:13 | NUR ---
Patient sitting up in chair. Doing well with breakfast. No difficulty with swallowing noted. His at bedside. Minimal needs.
--- NOTE | 2019-01-29 09:22 | NUR ---
Patient sitting up watching [employer] service online. Will monitor.
--- NOTE | 2019-01-29 11:50 | NUR ---
Patient up and ambulated entire third floor this nurse stand by assist. He did well. Awaiting lunch
--- NOTE | 2019-01-29 14:03 | NUR ---
Patient sleeping soundly at this time
--- NOTE | 2019-01-29 16:15 | NUR ---
PATIENT DENIES PAIN AT THIS TIME. PATIENT EATING A BANANA. PRESENT AT THE BEDSIDE. NO OTHER NEEDS AT THIS TIME.
[2019-01-29 17:31] VITALS: BP 107/78; PULSE 77; TEMP 98
--- NOTE | 2019-01-30 05:06 | NUR ---
IN ROOM. NO c/o PAIN. NO N/V. ASSIST OF 1 FOR AMBULATION.
[2019-01-30 05:56] VITALS: BP 117/88; PULSE 84; TEMP 97.3
--- NOTE | 2019-01-30 09:12 | NUR ---
Patient is noted to be sitting up in recliner eating breakfast. Was feeding self independently. Took medications without difficulty. Voice is noted to be soft but clearly understandable. Denies having any pain or any other needs. Soft touch call light is within reach.
--- NOTE | 2019-01-30 16:44 | NUR ---
SW met with patient to schedule a family conference. Patient reports SW will need to contact his , Fely. BERNARDA contacted Fely about the family conference. Fely reports she will need to check her schedule and contact BERNARDA tomorrow.
--- NOTE | 2019-01-30 16:54 | NUR ---
Patient is sitting up in the recliner watching TV and awaiting supper. Denies pain. Soft touch call light and personal items are within reach.
[2019-01-30 17:00] VITALS: BP 128/83; PULSE 83; TEMP 97.8
--- NOTE | 2019-01-30 21:00 | NUR ---
Patient in bed, at bedside. Patient just completed brushing his teeth with assist from . Pt is alert and oriented x4. Speech is slow but improving. Takes HS meds in applesauce, does well with swallowing. Nursery Helper are equal, gait is slightly unsteady, is a 1:1 assist. Trace dependent edema noted bilaterally. Reports voiding without problem and has had a BM today.
--- NOTE | 2019-01-31 03:59 | NUR ---
Resting well, spouse at bedside. Up with assist of 1 to bathroom several times this shift.
[2019-01-31 05:59] VITALS: BP 127/83; PULSE 88; TEMP 97.6
--- NOTE | 2019-01-31 06:00 | NUR ---
Assisted to bathroom with gait belt and one assist, then to chair at bedside. Takes AM meds in applesauce without coughing.
--- NOTE | 2019-01-31 08:50 | NUR ---
Pt took pills whole with applesauce one at a time.
--- NOTE | 2019-01-31 18:33 | NUR ---
No acute changes. visiting, notes swelling in BLE, around ankles. Pt to chair with shoes in place. Call lt in reach. Denies pain.
[2019-01-31 18:52] VITALS: BP 118/79; PULSE 81; TEMP 97.9
--- NOTE | 2019-01-31 19:35 | NUR ---
Pt resting with HOB elevated. at bedside. washing pt's face in preparation for sleep. Pts face is reddened most likely due to washing. No distress noted. Pt denies pain. Respiration even and unlabored. Lungs clear. BS+. Hands director of dance equal.. Pt is A&O answering questions approprately. No needs noted at this time. Will continue to monitor.
--- NOTE | 2019-02-01 02:40 | NUR ---
Pt ambulated to bathroom and back to bed with gait belt and assist of one. Well toerlated by patient. No needs noted.
[2019-02-01 06:50] VITALS: BP 117/72; PULSE 74; TEMP 97.6
--- NOTE | 2019-02-01 06:50 | NUR ---
Pt up in chair this AM. at bedside but she is getting ready to leave. Pt denies pain and states he had a restful night. Am medication admistered without difficulty. VSS. No further needs noted.
--- NOTE | 2019-02-01 14:18 | NUR ---
SW Student and SW attended team conference with patient and patient's (Fely). Also present were IPR director, PT, OT, and Speech. After introductions, PT/OT/ST discuss progress the patient has made as well as continuing goals. PT/OT/ST are all in agreeance that patient has made substantial progress and a tentative discharge date has been set for 02/07. Dr. Black has placed orders for psych and nuerology to both come meet with patient one more time (on 02/06) before discharge. Patient is to continue with outpatient PT/OT/Speech upon discharge. Patient and Patient's [place] [facility] [place]. SW to follow up with patient to present team conference notes.
[2019-02-01 17:24] VITALS: BP 112/82; PULSE 80; TEMP 98.1
--- NOTE | 2019-02-01 17:52 | NUR ---
Patient attended all therapies today. Tolerating diet well this shift. Denies pain. Denies questions at this time.
--- NOTE | 2019-02-01 21:00 | NUR ---
Patient rests quietly in bed. Quiet. Denies pain. HS meds all reviewed and given 1 at a time in applesauce. Reviewed HOB elevated 20-30minutes following meds. at bedside. Lights are out. Hand insurance administrator strong but slightly less on right.
--- NOTE | 2019-02-02 02:26 | NUR ---
Patient has been resting quietly in bed. Respirations with ease.
[2019-02-02 04:12] VITALS: BP 155/88; PULSE 70; TEMP 98.3
--- NOTE | 2019-02-02 09:56 | NUR ---
Patient returning from OT at this time. Patient was working with PT this morning and reported pain to his right ankle stating that he spranged that ankle when walking with his Fely on Wednesday. Will evaluate.
[2019-02-02 16:23] VITALS: BP 120/81; PULSE 83; TEMP 98.8
--- NOTE | 2019-02-02 19:39 | NUR ---
Patient attended all therapies today and tolerated diet well. Will continue to monitor.
--- NOTE | 2019-02-02 20:00 | NUR ---
PT SITTING UP IN RECLINER. TOOK HS MEDS WHOLE IN APPLESAUCE. PT HAS FACIAL MASK APPEARANCE. PARTICIPATES IN CONVERSATION. LAUGHS. HAS SLOW VERBAL RESPONSE. DENIES PAIN AT THIS TIME. AT BEDSIDE. VERY SUPPORTIVE.
[2019-02-03 04:59] VITALS: BP 124/88; PULSE 76; TEMP 97.6
--- NOTE | 2019-02-03 07:58 | NUR ---
Report from JOSE Bennett. left at shift change. Pt to chair for breakfast, shoes on, call light in reach. Pt eats slowly, wants to save unfinished food for after PT.
--- NOTE | 2019-02-03 15:39 | NUR ---
Per , she will try to schedule OP appts, will coordinate on Wednesday.
[2019-02-03 18:00] VITALS: BP 136/88; PULSE 90; TEMP 97.5
--- NOTE | 2019-02-03 21:30 | NUR ---
PT MOD I IN ROOM. SL SHUFFLING GAIT. FIXED AND EXPRESSIONLESS FACE. NEED TO CUE TO ANSWER QUESTIONS AT TIMES. TIRED. DENIES PAIN. TAKES PILLS WHOLE WITH APPLESAUCE. READY FOR BED. AT BEDSIDE. VERY SUPPORTIVE.
[2019-02-04 06:16] VITALS: BP 116/76; PULSE 82; TEMP 97.3
--- NOTE | 2019-02-04 08:26 | NUR ---
Pt jacqueline indep in room, does state that his assisted him last night. To chair for breakfast, jacqueline general diet. Denies pain. Shoes and clothes on. Flushed cheeks. Call lt in reach. Takes pills one at a time in applesauce.
[2019-02-04 15:09] VITALS: BP 121/79; PULSE 90; TEMP 97.6
--- NOTE | 2019-02-04 18:34 | NUR ---
No acute changes. visiting and assisting with cares.
--- NOTE | 2019-02-04 20:00 | NUR ---
PT WALKING AROUND IN ROOM. MOD I. STEADY GAIT. DENIES PAIN. ASSISTED WITH PT SHOWER TONIGHT.
[2019-02-05 05:29] VITALS: BP 115/80; PULSE 68; TEMP 98.2
--- NOTE | 2019-02-05 07:15 | NUR ---
Report received from JOSE Bennett. Pt in bed resting, at bedside, will continue to monitor.
--- NOTE | 2019-02-05 09:45 | NUR ---
Assessment charted. Pt in chair at side of bed. Flat affect and slow responses to questions but able to answer everything appropriately. Taking PO well. Denies needs, pain. Mercedes at bedside to help with needs. Up ambulating around unit ad arsalan. Will continue to monitor.
[2019-02-05 16:03] VITALS: BP 124/81; PULSE 85; TEMP 97.8
--- NOTE | 2019-02-05 17:26 | NUR ---
Pt has done well todya. Ambulated around floor and down to gift shop and back. at his side for entire time. Assists with needs in room but otherwise pt has been independent of nursing staff for most needs. Taking PO well, sitting in recliner and visiting with family and friends. Denies needs, will give bedside shift report to nightshift nurse who will resume care.
[2019-02-06 05:22] VITALS: BP 123/85; PULSE 83; TEMP 97.7
--- NOTE | 2019-02-06 09:32 | NUR ---
Report from JOSE Bennett. Pt jacqueline Indep in room, eating breakfast in chair, denies pain, took pills one at a time with applesauce. States he is ready for discharge tomorrow. Per discussion with on Wednesday, she will make pt's follow up appointments and has already left some messages with some offices.
--- NOTE | 2019-02-06 15:02 | NUR ---
Pt walked szymanski to nurses' station and back, visited, positive affect.
[2019-02-06 18:51] VITALS: BP 137/90; PULSE 84; TEMP 97.8
--- NOTE | 2019-02-06 20:30 | NUR ---
HS meds reviewed and given. Patient denies pain. Ambulates with slow steady gait to recliner and meds were given 1 at a time in applesauce. Declines snack. staying with patient through the night.
--- NOTE | 2019-02-07 01:40 | NUR ---
PATIENT RESTS QUIETLY IN BED. RESPIRATIONS WITH EASE.
[2019-02-07 05:26] VITALS: BP 128/83; PULSE 67; TEMP 98.1
[2019-02-07] MEDS ORDERED: TYLENOL 325MG325 MG PO (09:21)
[2019-02-07] MEDS ORDERED: SINEMET 25/101 UDTAB PO ×3 (09:24→09:26)
[2019-02-07] MEDS ORDERED: FLONASE NASAL S16 GM NS (09:27)
[2019-02-07] MEDS ORDERED: ATIVAN 0.50.5 MG/TAB PO (09:28)
[2019-02-07] MEDS ORDERED: PREVACID24HROTC PO (09:29)
--- NOTE | 2019-02-07 10:04 | NUR ---
Initial visit; Patient thanked Van Helper for stopping and stated he plans to be discharged today. Van Helper wished him well and will keep him in Van Helper's prayers.
--- NOTE | 2019-02-07 11:09 | NUR ---
Patient resting in recliner at this time, call light in reacha and is independent in his room. Patient denies pain at this time. He will be discharging this evening when gets off work. Patient independent in dressing today. Denies questions at this time.
--- NOTE | 2019-02-07 11:36 | NUR ---
SW student presented and explained IM form to the patient. The patient was agreeable and signed. Original placed in chart and copy given to the patient.
--- NOTE | 2019-02-07 14:03 | NUR ---
Patient will discharge home today and receive outpatient PT/OT.
--- NOTE | 2019-02-07 17:45 | NUR ---
Patient Health Summary, Discharge Summary, and Home Meds printed and reviewed with patient and Fely. Stressed importance of follow up appointments. Reviewed medications, provided printed prescription for Ativan. Called prescriptions for Topomax to pharmacy of choice. Belongings gathered by JACKLYN/Yolande including glasses, [employer]-Pad [employer] Razor w/chargers, bed cushion and street clothes. Patient transported via wheelchair by [place] and seatbelted for ride home. Patient and Fely denied questions.
== END 2019-02-07 18:00 | disposition home or self-care (01) | DRG 57 ==
PROVIDERS: ADMIT Internal Medicine
DX: G21.11 Neuroleptic induced parkinsonism (principal); M62.82 Rhabdomyolysis; J98.11 Atelectasis; F20.2 Catatonic schizophrenia; E44.0 Moderate protein-calorie malnutrition; I10 Essential (primary) hypertension; E78.5 Hyperlipidemia, unspecified; E03.9 Hypothyroidism, unspecified; R13.10 Dysphagia, unspecified; R33.9 Retention of urine, unspecified; F31.9 Bipolar disorder, unspecified; K21.9 Gastro-esophageal reflux disease without esophagitis; Z68.24 Body mass index [BMI] 24.0-24.9, adult
CPT/HCPCS: 99222-AI; 99232-AI; 99239; G0463; J1650

== ENCOUNTER → 2019-03-03 | Outpatient (CLI) | payer OTHER, MEDICARE ==
[~2019-03-03] MED LIST changes: +ATIVAN 0.50.5 MG/TAB PO; +COLACE 100100 MG/CAP PO; +FLONASE NASAL S16 GM NS; +IPRATROPIUM BROM3 M1 IH; +MIRALAX510G PO; +SINEMET 25/101 UDTAB PO; +TOPAMAX 25MG25 M1 PO; +TYLENOL 325MG325 MG PO
== END ==
LOC: COL.LAB 09:55
DX: G20 Parkinson's disease (principal)

== ENCOUNTER 2019-05-30 09:45 | Outpatient (RCR) | payer OTHER, MEDICARE | END 2019-07-10 09:17 | disposition home or self-care (01) | LOC: WSST 09:45 | DX: R53.1 Weakness (principal); R25.1 Tremor, unspecified; R26.81 Unsteadiness on feet; R13.12 Dysphagia, oropharyngeal phase; K11.7 Disturbances of salivary secretion ==

== ENCOUNTER 2019-07-27 11:15 | Outpatient (RCR) | payer OTHER, MEDICARE | END 2019-08-14 11:36 | disposition home or self-care (01) | LOC: MKS.ESL.OT 11:15 | DX: G56.03 Carpal tunnel syndrome, bilateral upper limbs (principal) ==

== ENCOUNTER → 2019-08-11 | Outpatient (CLI) | payer OTHER, MEDICARE | LOC: COL.CARD 14:33 | DX: G20 Parkinson's disease (principal) ==

== ENCOUNTER 2019-11-10 19:50 | Emergency (ER) | payer OTHER, MEDICARE ==
[~2019-11-10] VITALS: Ht 177.8 cm; Wt 72.7 kg
[~2019-11-10 19:50] MED LIST changes: +COLCRYS0.6 MG PO; +IBU400 MG PO; +INGREZZA80 MG; +KLONOPIN2 MG PO; +PROTONIX 40MG T40 MG PO
[2019-11-10 19:55] VITALS: TEMP 98.4
[2019-11-10 20:23] LABS: BASO # 0.1 (0.0-0.2); BASO % 0.7 % (0.0-2.0); EOS # 0.2 (0.0-0.7); EOS % 3.2 % (0-4.0); GRAN # 4.1 (1.4-6.5); GRAN % 55.4 % (42.2-75.2); HEMATOCRIT 43.5 % (42.0-52.0); HEMOGLOBIN 14.7 g/dl (13.5-18.0); LYMPH # 2.3 (1.2-3.4); LYMPH % 30.5 % (20.0-51.0); MEAN CELL VOLUME 88 fl (80.0-100.0); MEAN CORPUSCULAR HEMOGLOBIN 30 pg (27.0-31.0); MEAN CORPUSCULAR HGB CONC 34 g/dl (33.0-37.0); MEAN PLATELET VOLUME 10.1 fl (7.4-10.4); MONO # 0.7 (0.1-0.6); MONO % 9.8 % (1.7-9.3); PLATELET COUNT 304 K/mm3 (130-400); RED BLOOD COUNT 4.95 M/mm3 (4.20-5.60); REDCELL DISTRIBUTION WIDTH-CV 12.7 % (11.5-14.5)
[2019-11-10 20:35] LABS: ALBUMIN 4.4 gm/dL (3.5-5.0); BILIRUBIN,TOTAL 0.4 mg/dL (0.0-1.0); CREATININE, serum 1.09 (0.66-1.25); POTASSIUM 4.1 mmol/L (3.4-5.0); TOTAL PROTEIN 7.3 gm/dL (6.4-8.2)
[2019-11-10 22:37] LABS: COLLECTION METHOD CLEAN CATCH
[2019-11-10 22:45] LABS: MUCOUS Present /lpf; PH 6 (5-8); SQUAMOUS EPITHELIAL None Seen /hpf; URINE APPEARANCE Clear; URINE BACTERIA None Seen /hpf; URINE BILIRUBIN Negative (NEGATIVE); URINE BLOOD 1+ (NEGATIVE); URINE COLOR Yellow; URINE GLUCOSE Negative (NEGATIVE); URINE KETONE Trace (NEGATIVE); URINE LEUKOCYTE ESTERASE Negative (NEGATIVE); URINE NITRATE Negative (NEGATIVE); URINE PROTEIN(semi-quant) Negative (NEGATIVE); URINE UROBILINOGEN Negative (NEGATIVE)
[2019-11-11 00:24] VITALS: BP 121/84; PULSE 69
== END 2019-11-11 00:33 | disposition short-term general hospital (02) ==
LOC: COL.ER 19:50
PROVIDERS: Emergency Medicine
DX: R20.2 Paresthesia of skin (principal); I10 Essential (primary) hypertension; F31.9 Bipolar disorder, unspecified; E78.5 Hyperlipidemia, unspecified; K21.9 Gastro-esophageal reflux disease without esophagitis; E03.9 Hypothyroidism, unspecified; F20.9 Schizophrenia, unspecified; R40.2410 Glasgow coma scale score 13-15, unspecified time; Z79.51 Long term (current) use of inhaled steroids; V89.2XXA Person injured in unspecified motor-vehicle accident, traffic, initial encounter
CPT/HCPCS: J2270; J7030

== ENCOUNTER 2019-12-20 09:00 | Outpatient (RCR) | payer OTHER | END 2020-02-11 | disposition home or self-care (01) | LOC: MKS.ESL.PT | DX: S13.4XXA Sprain of ligaments of cervical spine, initial encounter (principal); V89.2XXA Person injured in unspecified motor-vehicle accident, traffic, initial encounter ==

== ENCOUNTER 2020-06-05 08:15 | Outpatient (RCR) | payer OTHER, MEDICARE | END 2020-06-09 | disposition home or self-care (01) | LOC: WSST | DX: G20 Parkinson's disease (principal); I10 Essential (primary) hypertension; E78.5 Hyperlipidemia, unspecified; E03.9 Hypothyroidism, unspecified; K21.9 Gastro-esophageal reflux disease without esophagitis ==

== ENCOUNTER 2020-06-05 09:00 | Outpatient (RCR) | payer OTHER, MEDICARE | END 2020-06-09 | disposition home or self-care (01) | LOC: MKS.ESL.PT | DX: G20 Parkinson's disease (principal) ==

== ENCOUNTER → 2020-07-01 | Outpatient (CLI) | payer OTHER, MEDICARE ==
[2020-07-01 08:29] LABS: ALBUMIN 4.5 gm/dL (3.5-5.0); ALKALINE PHOSPHATASE 76 U/L (50-136); ANION GAP 9 mmol/L (7-16); AST,SGOT 24 U/L (15-37); BILIRUBIN,TOTAL 0.8 mg/dL (0.0-1.0); BLOOD UREA NITROGEN 17 mg/dL (9-20); CALCIUM 9.3 mg/dL (8.4-10.2); CARBON DIOXIDE 27 mmol/L (22-30); CHLORIDE 104 mmol/L (98-107); CHOLESTEROL 230 mg/dL (120-200); CHOLESTEROL RISK RATIO 3.1; CREATININE, serum 1.07 (0.66-1.25); GLUCOSE 96 mg/dL (74-106); HDL CHOLESTEROL 72 mg/dL; LDL CHOLESTEROL 138 mg/dL; POTASSIUM 4.2 mmol/L (3.4-5.0); SODIUM 140 mmol/L (137-145); TOTAL PROTEIN 7.9 gm/dL (6.4-8.2); TRIGLYCERIDE 101 mg/dL
[2020-07-01 08:30] LABS: BASO # 0.1 (0.0-0.2); BASO % 1.1 % (0.0-2.0); EOS # 0.2 (0.0-0.7); EOS % 3.5 % (0-4.0); GRAN # 3.3 (1.4-6.5); GRAN % 58.2 % (42.2-75.2); HEMATOCRIT 46.4 % (42.0-52.0); HEMOGLOBIN 15.5 g/dl (13.5-18.0); LYMPH # 1.6 (1.2-3.4); MEAN CELL VOLUME 89 fl (80.0-100.0); MEAN CORPUSCULAR HEMOGLOBIN 30 pg (27.0-31.0); MEAN CORPUSCULAR HGB CONC 33 g/dl (33.0-37.0); MEAN PLATELET VOLUME 9.9 fl (7.4-10.4); MONO # 0.5 (0.1-0.6); MONO % 8.8 % (1.7-9.3); PLATELET COUNT 300 K/mm3 (130-400); REDCELL DISTRIBUTION WIDTH-CV 12.7 % (11.5-14.5)
[2020-07-01 08:32] LABS: ALANINE AMINOTRANSFERASE < 4 U/L (4-49)
== END ==
LOC: COL.LAB 07:40
PROVIDERS: Internal Medicine
DX: Z00.00 Encounter for general adult medical examination without abnormal findings (principal); G20 Parkinson's disease; E78.00 Pure hypercholesterolemia, unspecified; E03.9 Hypothyroidism, unspecified; R97.20 Elevated prostate specific antigen [PSA]

== ENCOUNTER 2020-09-11 12:30 | Outpatient (RCR) | payer OTHER, MEDICARE | END 2020-09-17 | disposition home or self-care (01) | LOC: MKS.ESL.PT | DX: G20 Parkinson's disease (principal) ==

== ENCOUNTER 2020-10-02 09:45 | Outpatient (RCR) | payer OTHER, MEDICARE | END 2020-10-07 | disposition home or self-care (01) | LOC: MKS.ESL.PT | DX: G20 Parkinson's disease (principal) ==

== ENCOUNTER → 2020-10-03 | Outpatient (CLI) | payer OTHER, MEDICARE | LOC: COL.LAB 09:00 | DX: E03.4 Atrophy of thyroid (acquired) (principal) ==

== ENCOUNTER 2020-10-30 10:15 | Outpatient (RCR) | payer OTHER, MEDICARE | END 2021-01-07 | disposition home or self-care (01) | LOC: MKS.ESL.PT | DX: G20 Parkinson's disease (principal) ==

== ENCOUNTER 2021-01-08 10:44 | Outpatient (RCR) | payer OTHER, MEDICARE | END 2021-01-15 08:16 | disposition still patient (30) | LOC: MKS.ESL.PT 10:44 | DX: G20 Parkinson's disease (principal); Z96.82 Presence of neurostimulator ==

== ENCOUNTER → 2021-01-22 | Outpatient (CLI) | payer OTHER, MEDICARE | LOC: COL.LAB 15:29 | DX: R97.20 Elevated prostate specific antigen [PSA] (principal) ==

== ENCOUNTER 2021-03-05 08:15 | Outpatient (RCR) | payer OTHER, MEDICARE | END 2021-03-11 | disposition home or self-care (01) | LOC: MKS.ESL.PT | DX: G20 Parkinson's disease (principal) ==

== ENCOUNTER 2021-06-04 14:15 | Outpatient (RCR) | payer OTHER, MEDICARE | END 2021-06-10 | disposition still patient (30) | LOC: MKS.ESL.PT | DX: G20 Parkinson's disease (principal); Z96.82 Presence of neurostimulator ==

== ENCOUNTER → 2021-07-30 | Outpatient (CLI) | payer OTHER, MEDICARE ==
[2021-07-30 09:37] LABS: BASO # 0.1 K/mm3 (0.0-0.2); BASO % 0.8 % (0.0-2.0); EOS # 0.2 K/mm3 (0.0-0.7); EOS % 2.7 % (0-4.0); GRAN # 3.4 K/mm3 (1.4-6.5); GRAN % 57.1 % (42.2-75.2); HEMOGLOBIN 15.3 g/dl (13.5-18.0); LYMPH # 1.7 K/mm3 (1.2-3.4); MEAN CELL VOLUME 87 fl (80.0-100.0); MEAN CORPUSCULAR HEMOGLOBIN 30 pg (27.0-31.0); MEAN CORPUSCULAR HGB CONC 34 g/dl (33.0-37.0); MEAN PLATELET VOLUME 9.6 fl (7.4-10.4); MONO # 0.6 K/mm3 (0.1-0.6); MONO % 10.2 % (1.7-9.3); PLATELET COUNT 303 K/mm3 (130-400); RED BLOOD COUNT 5.17 M/mm3 (4.20-5.60); REDCELL DISTRIBUTION WIDTH-CV 12.7 % (11.5-14.5)
[2021-07-30 09:56] LABS: BILIRUBIN,TOTAL 0.6 mg/dL (0.2-1.2); CALCIUM 9.5 mg/dL (8.4-10.2); CHOLESTEROL RISK RATIO 4.1; CREATININE, serum 1.02 mg/dL (0.72-1.25); POTASSIUM 4.5 mmol/L (3.5-4.5); TOTAL PROTEIN 7.1 gm/dL (6.2-8.1)
[2021-07-30 10:15] LABS: THYROID STIMULATING HORMONE 3.422 uIU/mL (0.350-4.940)
== END ==
LOC: COL.LAB 09:08
DX: E03.4 Atrophy of thyroid (acquired) (principal)

== ENCOUNTER → 2021-08-13 | Outpatient (CLI) | payer OTHER, MEDICARE ==
[2021-08-13 15:59] LABS: BASO # 0.1 K/mm3 (0.0-0.2); BASO % 0.9 % (0.0-2.0); EOS # 0.2 K/mm3 (0.0-0.7); EOS % 3.5 % (0-4.0); GRAN # 3.7 K/mm3 (1.4-6.5); GRAN % 55.2 % (42.2-75.2); HEMATOCRIT 44.2 % (42.0-52.0); HEMOGLOBIN 14.7 g/dl (13.5-18.0); LYMPH % 30.7 % (20.0-51.0); MEAN CELL VOLUME 88 fl (80.0-100.0); MEAN CORPUSCULAR HEMOGLOBIN 29 pg (27.0-31.0); MEAN CORPUSCULAR HGB CONC 33 g/dl (33.0-37.0); MEAN PLATELET VOLUME 9.9 fl (7.4-10.4); MONO # 0.6 K/mm3 (0.1-0.6); MONO % 9.5 % (1.7-9.3); PLATELET COUNT 292 K/mm3 (130-400); RED BLOOD COUNT 5.01 M/mm3 (4.20-5.60); REDCELL DISTRIBUTION WIDTH-CV 12.8 % (11.5-14.5)
[2021-08-13 16:11] LABS: ALANINE AMINOTRANSFERASE < 6 U/L (0-55); ALKALINE PHOSPHATASE 73 U/L (40-150); ANION GAP 9 mmol/L (7-16); AST,SGOT 14 U/L (5-34); BILIRUBIN,TOTAL 0.3 mg/dL (0.2-1.2); BLOOD UREA NITROGEN 10 mg/dL (8-26); C-REACTIVE PROTEIN 0.04 mg/dL (0.00-0.50); CALCIUM 9.2 mg/dL (8.4-10.2); CARBON DIOXIDE 25 mmol/L (22-29); CHLORIDE 109 mmol/L (98-107); CREATININE, serum 0.97 mg/dL (0.72-1.25); GLUCOSE 104 mg/dL (70-99); MAGNESIUM 1.9 mg/dL (1.6-2.6); POTASSIUM 4.2 mmol/L (3.5-4.5); SODIUM 143 mmol/L (136-145); TOTAL PROTEIN 7.2 gm/dL (6.2-8.1)
[2021-08-13 16:17] LABS: TROPONIN-I < 0.010 ng/mL (0.00-0.033)
[2021-08-13 16:26] LABS: ERYTHROCYTE SEDIMENTATION RATE 4 mm/hr (0-30)
== END ==
LOC: COL.LAB 15:26
PROVIDERS: Internal Medicine Adult Congenital Heart Disease
DX: E78.00 Pure hypercholesterolemia, unspecified (principal); Z86.79 Personal history of other diseases of the circulatory system

== ENCOUNTER → 2021-09-10 | Outpatient (RCR) | payer OTHER, MEDICARE | END | disposition home or self-care (01) | LOC: MKS.ESL.PT | DX: G20 Parkinson's disease (principal); Z96.9 Presence of functional implant, unspecified ==

== ENCOUNTER → 2021-09-17 | Outpatient (CLI) | payer OTHER, MEDICARE | LOC: COL.VAS 08-27 12:30 | DX: R07.9 Chest pain, unspecified (principal) ==

== ENCOUNTER 2021-10-01 10:15 | Outpatient (RCR) | payer OTHER, MEDICARE | END 2021-10-03 | LOC: MKS.ESL.PT | DX: G20 Parkinson's disease (principal); Z96.21 Cochlear implant status ==

== ENCOUNTER → 2021-10-02 | Outpatient (CLI) | payer OTHER, MEDICARE ==
[2021-10-02 10:22] LABS: CHOLESTEROL RISK RATIO 4.4
== END ==
LOC: COL.LAB 09:22
PROVIDERS: Internal Medicine Adult Congenital Heart Disease
DX: E78.00 Pure hypercholesterolemia, unspecified (principal); R42 Dizziness and giddiness

== ENCOUNTER → 2021-11-07 | Outpatient (CLI) | payer OTHER, MEDICARE ==
[2021-11-07 08:25] LABS: BASO # 0.1 K/mm3 (0.0-0.2); BASO % 0.9 % (0.0-2.0); EOS # 0.2 K/mm3 (0.0-0.7); EOS % 3.3 % (0.0-4.0); GRAN % 54.6 % (42.2-75.2); HEMOGLOBIN 15.5 g/dl (13.5-18.0); LYMPH # 1.6 K/mm3 (1.2-3.4); LYMPH % 30.3 % (20.0-51.0); MEAN CELL VOLUME 89 fl (80.0-100.0); MEAN CORPUSCULAR HEMOGLOBIN 29 pg (27-31); MEAN CORPUSCULAR HGB CONC 33 g/dl (33.0-37.0); MEAN PLATELET VOLUME 9.6 fl (7.4-10.4); MONO # 0.6 K/mm3 (0.1-0.6); MONO % 10.7 % (1.7-9.3); PLATELET COUNT 264 K/mm3 (130-400); RED BLOOD COUNT 5.27 M/mm3 (4.20-5.60); REDCELL DISTRIBUTION WIDTH-CV 12.6 % (11.5-14.5)
[2021-11-07 08:41] LABS: ALBUMIN 4.1 gm/dL (3.5-5.0); ALKALINE PHOSPHATASE 70 U/L (40-150); ANION GAP 8 mmol/L (7-16); AST,SGOT 17 U/L (5-34); BLOOD UREA NITROGEN 12 mg/dL (8-26); CALCIUM 9.1 mg/dL (8.4-10.2); CARBON DIOXIDE 25 mmol/L (22-29); CHLORIDE 108 mmol/L (98-107); CHOLESTEROL 271 mg/dL (0-199); CHOLESTEROL RISK RATIO 4.3; CREATININE, serum 1.04 mg/dL (0.72-1.25); GLUCOSE 96 mg/dL (70-99); HDL CHOLESTEROL 62 mg/dL (40-60); LDL CHOLESTEROL 177 mg/dL; POTASSIUM 4.3 mmol/L (3.5-4.5); SODIUM 141 mmol/L (136-145); TOTAL PROTEIN 7.2 gm/dL (6.2-8.1); TRIGLYCERIDE 162 mg/dL (0-149)
[2021-11-07 08:43] LABS: ALANINE AMINOTRANSFERASE < 6 U/L (0-55)
[2021-11-07 09:00] LABS: THYROID STIMULATING HORMONE 3.737 uIU/mL (0.350-4.940)
== END ==
LOC: COL.LAB 07:50
DX: Z00.00 Encounter for general adult medical examination without abnormal findings (principal); E03.4 Atrophy of thyroid (acquired)

== ENCOUNTER 2021-11-26 08:45 | Outpatient (RCR) | payer OTHER, MEDICARE | END 2021-12-01 | disposition home or self-care (01) | LOC: MKS.ESL.PT | DX: G20 Parkinson's disease (principal); Z96.82 Presence of neurostimulator ==

== ENCOUNTER 2021-12-31 08:45 | Outpatient (RCR) | payer OTHER, MEDICARE ==
[~2021-12-31 08:45] MED LIST changes: -SYNTHROID0.088 MG/T PO; +SYNTHROID0.1 MG/TAB PO
== END 2022-01-01 ==
LOC: MKS.ESL.PT
DX: G20 Parkinson's disease (principal); Z96.9 Presence of functional implant, unspecified

== ENCOUNTER 2022-01-28 10:30 | Outpatient (RCR) | payer OTHER, MEDICARE ==
[2022-01-31] MEDS ORDERED: RYTARY1 CER PO ×2 (08:03→08:04)
[2022-01-31] MEDS ORDERED: RYTARY1 CE3 PO (08:04)
[2022-01-31] MEDS ORDERED: FLONASE NASAL S16 GM NS (08:09)
[2022-01-31] MEDS ORDERED: REQUIP XL4 MG PO (08:11)
[2022-01-31] MEDS ORDERED: NEURONTIN100 MG/CAP PO (08:13)
== END 2022-01-31 | disposition home or self-care (01) ==
LOC: MKS.ESL.PT
DX: G20 Parkinson's disease (principal); Z96.82 Presence of neurostimulator

== ENCOUNTER 2022-01-31 07:39 | Emergency (ER) | payer OTHER, MEDICARE ==
[~2022-01-31] VITALS: Ht 177.8 cm; Wt 76.8 kg
[2022-01-31] MEDS ORDERED: RYTARY1 CER PO ×2 (08:03→08:04)
[2022-01-31] MEDS ORDERED: RYTARY1 CE3 PO (08:04)
[2022-01-31] MEDS ORDERED: FLONASE NASAL S16 GM NS (08:09)
[2022-01-31] MEDS ORDERED: REQUIP XL4 MG PO (08:11)
[2022-01-31 08:12] LABS: BASO # 0.1 K/mm3 (0.0-0.2); EOS # 0.2 K/mm3 (0.0-0.7); EOS % 3.7 % (0.0-4.0); GRAN % 51.7 % (42.2-75.2); HEMATOCRIT 45.2 % (42.0-52.0); LYMPH # 1.9 K/mm3 (1.2-3.4); LYMPH % 31.9 % (20.0-51.0); MEAN CELL VOLUME 89 fl (80.0-100.0); MEAN CORPUSCULAR HEMOGLOBIN 30 pg (27-31); MEAN CORPUSCULAR HGB CONC 33 g/dl (33.0-37.0); MEAN PLATELET VOLUME 9.6 fl (7.4-10.4); MONO # 0.7 K/mm3 (0.1-0.6); MONO % 11.4 % (1.7-9.3); PLATELET COUNT 263 K/mm3 (130-400); RED BLOOD COUNT 5.08 M/mm3 (4.20-5.60); REDCELL DISTRIBUTION WIDTH-CV 12.6 % (11.5-14.5)
[2022-01-31] MEDS ORDERED: NEURONTIN100 MG/CAP PO (08:13)
[2022-01-31 08:30] LABS: ALANINE AMINOTRANSFERASE < 6 U/L (0-55); ALBUMIN 4.1 gm/dL (3.5-5.0); ALKALINE PHOSPHATASE 73 U/L (40-150); ANION GAP 10 mmol/L (7-16); AST,SGOT 22 U/L (5-34); BILIRUBIN,TOTAL 0.5 mg/dL (0.2-1.2); BLOOD UREA NITROGEN 12 mg/dL (8-26); C-REACTIVE PROTEIN 0.07 mg/dL (0.00-0.50); CALCIUM 8.5 mg/dL (8.4-10.2); CARBON DIOXIDE 23 mmol/L (22-29); CHLORIDE 108 mmol/L (98-107); CREATININE, serum 0.89 mg/dL (0.72-1.25); GLUCOSE 84 mg/dL (70-99); SODIUM 141 mmol/L (136-145); TOTAL PROTEIN 6.7 gm/dL (6.2-8.1)
[2022-01-31 08:37] LABS: TROPONIN-I < 0.010 ng/mL (0.00-0.033)
--- NOTE | 2022-01-31 10:58 | NUR ---
Initial visit; Patient and his thanked [employer] Miller for looking in on him and offering prayer and God's blessings.
[2022-01-31 11:17] VITALS: BP 128/95; PULSE 56
== END 2022-01-31 11:17 | disposition home or self-care (01) ==
LOC: COL.ER 07:39
PROVIDERS: Emergency Medicine
DX: R07.89 Other chest pain (principal); R00.1 Bradycardia, unspecified; G20 Parkinson's disease; Z96.82 Presence of neurostimulator; Z20.822 Contact with and (suspected) exposure to COVID-19
CPT/HCPCS: J2270

== ENCOUNTER 2022-02-01 12:18 | Emergency (ER) | payer OTHER, MEDICARE ==
[~2022-02-01] VITALS: Ht 177.8 cm; Wt 76.8 kg
[~2022-02-01 12:18] MED LIST changes: +NEURONTIN100 MG/CAP PO; +REQUIP XL4 MG PO; +RYTARY1 CE3 PO; +RYTARY1 CER PO
[2022-02-01 12:59] VITALS: TEMP 97.5
[2022-02-01 13:19] LABS: BASO # 0.1 K/mm3 (0.0-0.2); EOS # 0.2 K/mm3 (0.0-0.7); EOS % 2.5 % (0.0-4.0); GRAN # 3.7 K/mm3 (1.4-6.5); GRAN % 60.9 % (42.2-75.2); HEMATOCRIT 46.3 % (42.0-52.0); HEMOGLOBIN 15.3 g/dl (13.5-18.0); LYMPH # 1.6 K/mm3 (1.2-3.4); LYMPH % 25.6 % (20.0-51.0); MEAN CELL VOLUME 92 fl (80.0-100.0); MEAN CORPUSCULAR HEMOGLOBIN 30 pg (27-31); MEAN CORPUSCULAR HGB CONC 33 g/dl (33.0-37.0); MONO # 0.6 K/mm3 (0.1-0.6); MONO % 9.7 % (1.7-9.3); PLATELET COUNT 296 K/mm3 (130-400); RED BLOOD COUNT 5.06 M/mm3 (4.20-5.60); REDCELL DISTRIBUTION WIDTH-CV 12.7 % (11.5-14.5)
[2022-02-01 13:39] LABS: ALBUMIN 4.3 gm/dL (3.5-5.0); ALKALINE PHOSPHATASE 76 U/L (40-150); ANION GAP 10 mmol/L (7-16); AST,SGOT 15 U/L (5-34); BILIRUBIN,TOTAL 0.7 mg/dL (0.2-1.2); BLOOD UREA NITROGEN 11 mg/dL (8-26); CALCIUM 8.8 mg/dL (8.4-10.2); CARBON DIOXIDE 22 mmol/L (22-29); CHLORIDE 110 mmol/L (98-107); CREATININE, serum 0.94 mg/dL (0.72-1.25); GLUCOSE 69 mg/dL (70-99); POTASSIUM 4.1 mmol/L (3.5-4.5); SODIUM 142 mmol/L (136-145); TOTAL PROTEIN 6.9 gm/dL (6.2-8.1)
[2022-02-01 13:40] LABS: ALANINE AMINOTRANSFERASE < 6 U/L (0-55)
[2022-02-01 13:46] LABS: TROPONIN-I < 0.010 ng/mL (0.00-0.033)
[2022-02-01 14:32] VITALS: BP 120/95; PULSE 55
== END 2022-02-01 14:50 | disposition home or self-care (01) ==
LOC: COL.ER 12:18
PROVIDERS: Physician Assistant
DX: I95.1 Orthostatic hypotension (principal); R07.9 Chest pain, unspecified
CPT/HCPCS: J7030

== ENCOUNTER → 2022-02-02 | Outpatient (CLI) | payer OTHER, MEDICARE ==
[~2022-02-02] MED LIST changes: +GALZIN50 MG PO; +VITAMIN C500 MG PO
== END ==
LOC: COL.LAB 16:12
DX: R97.20 Elevated prostate specific antigen [PSA] (principal)

== ENCOUNTER 2022-02-05 07:08 | Emergency (ER) | payer OTHER, MEDICARE ==
[~2022-02-05] VITALS: Ht 177.8 cm; Wt 76.8 kg
[~2022-02-05 07:08] MED LIST changes: -GALZIN50 MG PO; -VITAMIN C500 MG PO
[2022-02-05 07:19] VITALS: TEMP 97.4
[2022-02-05 07:41] LABS: BASO # 0.1 K/mm3 (0.0-0.2); BASO % 0.9 % (0.0-2.0); EOS # 0.2 K/mm3 (0.0-0.7); EOS % 3.9 % (0.0-4.0); GRAN # 3.3 K/mm3 (1.4-6.5); GRAN % 57.5 % (42.2-75.2); HEMOGLOBIN 15.5 g/dl (13.5-18.0); LYMPH # 1.5 K/mm3 (1.2-3.4); LYMPH % 26.9 % (20.0-51.0); MEAN CELL VOLUME 91 fl (80.0-100.0); MEAN CORPUSCULAR HEMOGLOBIN 30 pg (27-31); MEAN CORPUSCULAR HGB CONC 33 g/dl (33.0-37.0); MEAN PLATELET VOLUME 9.8 fl (7.4-10.4); MONO # 0.6 K/mm3 (0.1-0.6); MONO % 10.4 % (1.7-9.3); PLATELET COUNT 291 K/mm3 (130-400); RED BLOOD COUNT 5.17 M/mm3 (4.20-5.60); REDCELL DISTRIBUTION WIDTH-CV 12.9 % (11.5-14.5)
[2022-02-05 08:02] LABS: ALANINE AMINOTRANSFERASE 8 U/L (0-55); ALBUMIN 4.2 gm/dL (3.5-5.0); ALKALINE PHOSPHATASE 75 U/L (40-150); ANION GAP 9 mmol/L (7-16); AST,SGOT 17 U/L (5-34); BILIRUBIN,TOTAL 0.7 mg/dL (0.2-1.2); BLOOD UREA NITROGEN 11 mg/dL (8-26); CALCIUM 9.2 mg/dL (8.4-10.2); CARBON DIOXIDE 24 mmol/L (22-29); CHLORIDE 109 mmol/L (98-107); CREATINE KINASE 134 U/L (30-200); CREATININE, serum 0.95 mg/dL (0.72-1.25); GLUCOSE 88 mg/dL (70-99); LIPASE 26 U/L (8-78); POTASSIUM 3.7 mmol/L (3.5-4.5); SODIUM 142 mmol/L (136-145)
[2022-02-05 08:21] LABS: TSH w REFLEX 5.379 uIU/mL (0.350-4.940)
[2022-02-05 08:22] LABS: TROPONIN-I < 0.010 ng/mL (0.00-0.033)
[2022-02-05 13:22] VITALS: BP 110/78; PULSE 59
== END 2022-02-05 13:37 | disposition home or self-care (01) ==
LOC: COL.ER 07:08
PROVIDERS: Emergency Medicine
DX: E03.8 Other specified hypothyroidism (principal); R00.1 Bradycardia, unspecified; R53.81 Other malaise
CPT/HCPCS: J2270

== ENCOUNTER 2022-02-17 11:14 | Outpatient (CLI) | payer OTHER, MEDICARE ==
[2006-05-22 23:03] VITALS: BP 113/76
[~2022-02-17] VITALS: Ht 177.8 cm; Wt 78.4 kg
[2022-02-17] MEDS ORDERED: COLCRYS0.6 MG PO (11:40)
[2022-02-17] MEDS ORDERED: GALZIN50 MG PO (11:47)
[2022-02-17] MEDS ORDERED: VITAMIN C500 MG PO (11:48)
[2022-02-17 11:49] VITALS: BP 118/77; PULSE 64; TEMP 97.6
[2022-02-17 13:40] VITALS: BP 120/76; PULSE 67
--- NOTE | 2022-02-17 13:50 | NUR ---
DC instructions reviewed with pt and . Both expressed understanding. Dressing to loop insertion site remains clean, dry and intact. He is assisted out to 's car by wheelchair.
== END 2022-02-17 13:50 | disposition home or self-care (01) ==
LOC: COL.CAR 11:14
DX: R00.1 Bradycardia, unspecified (principal); E78.00 Pure hypercholesterolemia, unspecified; I30.0 Acute nonspecific idiopathic pericarditis; R07.9 Chest pain, unspecified
CPT/HCPCS: 27886; C1764

== ENCOUNTER 2022-02-25 10:00 | Outpatient (RCR) | payer OTHER, MEDICARE ==
[~2022-02-25 10:00] MED LIST changes: +GALZIN50 MG PO; +VITAMIN C500 MG PO
== END 2022-03-03 | disposition home or self-care (01) ==
LOC: MKS.ESL.PT
DX: G20 Parkinson's disease (principal); Z96.82 Presence of neurostimulator

== ENCOUNTER 2022-03-25 10:15 | Outpatient (RCR) | payer OTHER, MEDICARE | END 2022-04-02 | disposition still patient (30) | LOC: MKS.ESL.PT | DX: G20 Parkinson's disease (principal); Z96.82 Presence of neurostimulator ==

== ENCOUNTER 2022-04-29 10:15 | Outpatient (RCR) | payer OTHER, MEDICARE | END 2022-05-03 | disposition home or self-care (01) | LOC: MKS.ESL.PT | DX: G20 Parkinson's disease (principal) ==

== ENCOUNTER → 2022-05-22 | Outpatient (CLI) | payer OTHER, MEDICARE ==
[2022-05-22 09:44] LABS: ALBUMIN 4.2 gm/dL (3.5-5.0); BILIRUBIN,TOTAL 0.9 mg/dL (0.2-1.2); CALCIUM 9.5 mg/dL (8.4-10.2); CHOLESTEROL RISK RATIO 4.2; CREATININE, serum 1.01 mg/dL (0.72-1.25); POTASSIUM 4.3 mmol/L (3.5-4.5); TOTAL PROTEIN 7.6 gm/dL (6.2-8.1)
== END ==
LOC: COL.LAB 08:50
PROVIDERS: Internal Medicine Adult Congenital Heart Disease
DX: R00.1 Bradycardia, unspecified (principal)

== ENCOUNTER 2022-05-27 10:15 | Outpatient (RCR) | payer OTHER, MEDICARE | END 2022-06-03 | disposition home or self-care (01) | LOC: MKS.ESL.PT | DX: G20 Parkinson's disease (principal); Z96.82 Presence of neurostimulator ==

== ENCOUNTER 2022-07-27 11:15 | Outpatient (RCR) | payer OTHER, MEDICARE | END 2022-08-03 | disposition home or self-care (01) | LOC: MKS.ESL.PT | DX: G20 Parkinson's disease (principal); Z96.82 Presence of neurostimulator ==

== ENCOUNTER → 2022-08-07 | Outpatient (CLI) | payer OTHER, MEDICARE | LOC: COL.LAB 14:37 | DX: R97.20 Elevated prostate specific antigen [PSA] (principal) ==